=== PATIENT | female | born 1985 | race Two or more races ===

== ENCOUNTER 2023-12-19 07:30 | Emergency (ER) | payer BC ==
[~2023-12-19] VITALS: Ht 157.5 cm; Wt 91.8 kg
[2023-12-19 07:56] VITALS: BP 121/77; PULSE 83; RESP 16; TEMP 97.3; O2SAT 97
[2023-12-19] MEDS: KETOROLAC TROMETH 60MG/2ML VIAL IM ONE (08:08)
[2023-12-19] MEDS ORDERED: NAP500T PO (09:09)
== END 2023-12-19 09:22 | disposition home or self-care (01) ==
LOC: ER 07:30
DX: S93.691A Other sprain of right foot, initial encounter (principal); Z79.899 Other long term (current) drug therapy; W18.39XA Other fall on same level, initial encounter; Y93.89 Activity, other specified; Y92.89 Other specified places as the place of occurrence of the external cause; Y99.8 Other external cause status
CPT/HCPCS: 73630; 96372; 99283; J1885